=== PATIENT | male | born 1965 | race Caucasian/White ===

== ENCOUNTER 2016-11-23 08:24 | Day surgery (SDC) | payer BC ==
[2016-11-23] MEDS ORDERED: LIDOCAINE 2% MDV (20MG/ML) 20ML VIAL IV ONE (14:00)
[2016-11-23] MEDS ORDERED: PROPOFOL 10 MG/ML VIAL IV ONE (14:00)
--- NOTE | 2016-11-25 12:00 | Operative Note ---
DATE OF SURGERY: 11/23/2016 OPERATION: COLONOSCOPY to the cecum with cold biopsy forceps polypectomy x1 and random colon biopsies. INDICATION: Remote history of colitis. The patient has not had evidence of colitis, however, since his first examination many years ago. He takes no regular medications for this. He does have a history of adenomatous polyps as well, and colonoscopy is repeated at this time for further evaluation. ANESTHESIA: Intravenous sedation was administered by the department of anesthesiology and included Diprivan titrated to effect. PROCEDURE: Following informed consent from this alert individual including a discussion of the risks and benefits of the procedure and an opportunity for the patient to ask questions, the patient was in the left lateral decubitus position. A digital rectal examination was performed. No abnormalities were noted. Following this, the Olympus [id number] video colonoscope was inserted into the rectum without resistance. The rectal mucosa had a normal appearance with normal folds and distensibility. The colonoscope was advanced up through the colon to the level of the cecum without much difficulty. Throughout the bowel the mucosa appeared normal, the folds were normal, and the bowel was fairly well distensible. The cecum was defined by noting the appendiceal orifice and ileocecal valve. The colon preparation was good. From the base of the cecum, the colonoscope was then slowly withdrawn. Some random biopsies were taken from the right colon and left colon upon withdrawal. There was a 3-4 mm polyp noted in the descending colon which was removed with the application of cold biopsy forceps. There was some minimal erythema noted in the sigmoid colon but no ulcerations or erosions noted throughout. Retroflexion in the rectum was endoscopically unremarkable. The endoscope was straightened and withdrawn. The patient tolerated the procedure well and was returned to the recovery area in stable condition. IMPRESSION: A 3-4 mm polyp removed from the descending colon with cold biopsy forceps. The remainder of the bowel appeared essentially unremarkable with some minimal erythema only noted in the sigmoid region. Random biopsies taken from the right and left colon upon withdrawal. RECOMMENDATIONS: The patient was advised he should receive a copy of his pathology report at home in the next 2-3 weeks. If not, he was asked to call my office to review the results of testing today. Further recommendations will be forthcoming pending those results. Followup will also be with Dr. William Reardon. As always, thank you for allowing me to participate in the care of your patient. Vinny Parrish DO CC: Dr. William VILLARREAL
== END 2016-11-23 10:45 | disposition home or self-care (01) ==
LOC: HOP 08:24
PROVIDERS: ATTEND Internal Medicine Gastroenterology
DX: Z09 Encounter for follow-up examination after completed treatment for conditions other than malignant neoplasm (principal); Z86.010 Personal history of colon polyps; D12.4 Benign neoplasm of descending colon; E78.00 Pure hypercholesterolemia, unspecified; I10 Essential (primary) hypertension

== ENCOUNTER 2017-03-01 10:31 | Day surgery (SDC) | payer BC ==
[2017-03-01] MEDS ORDERED: FENTANYL PF 100MCG/2ML VIAL IV ONE (14:00)
[2017-03-01] MEDS ORDERED: PROPOFOL 10 MG/ML VIAL IV ONE (14:00)
[2017-03-01] MEDS ORDERED: MIDAZOLAM HCL 2MG/2ML VIAL IV ONE (14:00)
[2017-03-01] MEDS ORDERED: LIDOCAINE 2% MDV (20MG/ML) 20ML VIAL IV ONE (14:00)
--- NOTE | 2017-03-03 11:50 | Operative Note ---
DATE OF SURGERY: 03/01/2017 OPERATION: ESOPHAGOGASTRODUODENOSCOPY with biopsy. INDICATION: Episodic right upper quadrant pain, rule out acid peptic disease. ANESTHESIA: Intravenous sedation was administered by the department of anesthesiology and included Diprivan titrated to effect. PROCEDURE: Following informed consent from this alert individual, including a discussion of the risks and benefits of the procedure and an opportunity for the patient to ask questions, the patient was in the left lateral decubitus position. The Olympus [id number] video endoscope was inserted into the esophagus without resistance. The proximal esophagus had a normal appearance with normal folds and distensibility. The mid esophagus likewise was free from changes. The distal esophageal segment demonstrated some slight irregularity of the squamocolumnar junction. For this reason, biopsies were obtained. The stomach was entered. The gastric fundus and pars media had a normal appearance with normal folds and distensibility. The antrum evaluated circumferentially demonstrated some mild streak-like erythema, and biopsies were taken to assess for Helicobacter pylori and check histology. The pylorus was symmetrical and patent. The duodenal bulb, sweep and descending duodenum were examined in a serial fashion and found to be normal. The endoscope was then withdrawn back into the body of the stomach. Retroflexion accomplished following air insufflation failed to demonstrate any additional changes. The endoscope was then straightened and withdrawn. The patient tolerated the procedure well and was returned to the recovery area in stable condition. IMPRESSION: 1. Slight irregularity of the squamocolumnar junction, biopsies taken. 2. Mild linear antral gastritis. RECOMMENDATION: Further recommendations will be forthcoming pending results of biopsies obtained today. The patient will continue with acid blockade therapy at this time in the form of Prilosec. Followup will also be with Dr. Reardon and Dr. Torres. As always, thank you for allowing me to participate in the care of your patient. CC: Dr. William Torres [facility]
== END 2017-03-01 12:30 | disposition home or self-care (01) ==
LOC: HOP 10:31
PROVIDERS: ATTEND Internal Medicine Gastroenterology
DX: R10.11 Right upper quadrant pain (principal); K29.70 Gastritis, unspecified, without bleeding; K31.89 Other diseases of stomach and duodenum; I10 Essential (primary) hypertension; E78.00 Pure hypercholesterolemia, unspecified
CPT/HCPCS: 43235; 00740; J3010